=== PATIENT | male | born 1990 | race Caucasian/White ===

== ENCOUNTER 2018-11-27 20:57 | Emergency (ER) | payer OTHER ==
[2018-11-27] MEDS: KETOROLAC 30 MG INJ IM (22:17)
[2018-11-27 22:37] LABS: URIC ACID 7.1 mg/dl (3.1-7.9)
== END 2018-11-27 23:28 | disposition home or self-care (01) ==
LOC: FTE 20:57
DX: M25.571 Pain in right ankle and joints of right foot (principal)
CPT/HCPCS: 73610; 73610-RT; 84560; 93971; 96372; 99285-25

== ENCOUNTER 2019-02-23 23:12 | Emergency (ER) | payer OTHER | END 2019-02-24 01:35 | disposition home or self-care (01) | LOC: FTE 23:12 | DX: S90.121A Contusion of right lesser toe(s) without damage to nail, initial encounter (principal); F17.210 Nicotine dependence, cigarettes, uncomplicated; W22.8XXA Striking against or struck by other objects, initial encounter; Y92.9 Unspecified place or not applicable | CPT/HCPCS: 73660; 99283-25 ==